=== PATIENT | female | born 1970 | race Caucasian/White ===

== ENCOUNTER → 2020-04-15 | Outpatient (CLI) | payer OTHER, SELFPAY ==
--- NOTE | 2020-04-15 13:26 | RAD_ITS ---
STUDY: X-RAY - RIGHT SHOULDER REASON FOR EXAM: Pain. TECHNIQUE: 4 view(s) of the shoulder. COMPARISON: None. FINDINGS: Normal glenohumeral articulation. There is acromioclavicular arthrosis. Normal acromion. Normal humeral head and visualized proximal humerus. The soft tissue structures are unremarkable. Normal visualized pulmonary apex. RAD/Shoulder min 2 Views IMPRESSION: Acromioclavicular arthrosis. Electronically Signed: Sunny Resendez MD at 14:09 EDT Tel , Service support ,
== END | disposition home or self-care (01) ==
LOC: HPRAD 13:26
PROVIDERS: PCP Family Medicine; Referring Provider Orthopaedic Surgery; Visit Provider Orthopaedic Surgery
DX: S46.911A Strain of unspecified muscle, fascia and tendon at shoulder and upper arm level, right arm, initial encounter (principal)
CPT/HCPCS: 73030

== ENCOUNTER → 2020-07-01 | Outpatient (CLI) | payer OTHER, SELFPAY ==
[2020-07-01 13:53] VITALS: BMI 30.7
--- NOTE | 2020-07-01 14:24 | VDUE_ITS ---
Reason For Study: swelling Right Proximal Right jugular vein is spontaneous, widely patent, phasic, with no intraluminal echogenicity noted. Right subclavian vein is spontaneous, widely patent, phasic, with no intraluminal echogenicity noted. Right Lower Arm Right radial vein is compressible. Right ulnar vein is compressible. Right Arm Right axillary vein is spontaneous, patent, phasic, competent, compressible and demonstrates augmentation. Right brachial vein is compressible. Right cephalic vein is compressible. Right basilic vein is compressible. Interpretation Summary No evidence for acute deep venous thrombosis[right] upper extremity with patent and compressible cephalic and basilic veins. Ordering Physician: Camila Blair Performed By: Phillip Rojo RVT ?
== END | disposition home or self-care (01) ==
PROVIDERS: PCP Family Medicine; Referring Provider Orthopaedic Surgery; Visit Provider Orthopaedic Surgery
DX: M79.89 Other specified soft tissue disorders (principal); S46.911A Strain of unspecified muscle, fascia and tendon at shoulder and upper arm level, right arm, initial encounter
CPT/HCPCS: 93971

== ENCOUNTER → 2020-10-22 12:29 | Outpatient (CLI) | payer OTHER, SELFPAY ==
[2020-07-01 13:53] VITALS: BMI 30.7
--- NOTE | 2020-10-22 12:30 | RAD_ITS ---
CLINICAL HISTORY: Female, 50 years old. Right shoulder pain. PROCEDURE: ARTHROGRAM - RIGHT SHOULDER CONSENT: The procedure as well as the benefits and possible complications were explained to the patient including infection and bleeding. Informed consent was obtained. FLUOROSCOPY TIME (if supplied): (42 seconds) minutes/seconds. Injection Information: 10 cc of dilute Dotarem Number of images obtained: 3 TECHNIQUE: (All elements of maximal sterile barrier technique followed, including US elements as applicable) The patient was in the supine position. The overlying skin was prepped and draped in usual sterile fashion. Following local anesthetic application and under direct fluoroscopic guidance, a 22-gauge spinal needle was placed into the shoulder joint. 2 cc of ISOVUE 300 was injected for confirmation. Following this, 10 cc of dilute Dotarem was injected. The patient tolerated the procedure well. RAD/Arthrogram Shoulder w/ MRI IMPRESSION: Successful right shoulder arthrogram for MRI examination. The patient tolerated the procedure well. Electronically Signed: Adrian Reveles, at 15:10 EST , Service support ,
--- NOTE | 2020-10-22 12:30 | MRI_ITS ---
STUDY: MRI RIGHT SHOULDER arthrogram REASON FOR EXAM: Female, 50 years old. RIGHT shoulder injury x 1 yr please compare with outside arthrogram. TECHNIQUE: Standardized fat and water weighted pulse sequences were obtained in all 3 orthogonal planes. COMPARISON: October 15, 2019 FINDINGS: Tendinosis of the supraspinatus with fraying and partial humeral surface distal tendon tear, series 5 images 05/22 and 06/22. Normal infraspinatus tendon. Normal subscapularis tendon. Normal teres minor tendon. Normal supraspinatus muscle. Normal infraspinatus muscle. Normal subscapularis muscle. Normal teres minor muscle. Normal glenohumeral articulation. Small cysts of the anterior and lateral humeral head. Normal biceps labral complex. Normal intracapsular long biceps tendon. Normal labrum. There is thickening of the middle glenohumeral ligament suggesting [place] complex. There is a partial tear of the inferior glenohumeral ligament (IGHL) at the humeral insertion, series 4 images 04/24 and 05/24. Normal rotator interval. There is mild osteoarthritis of the acromioclavicular articulation. There is a Type II morphology (curved) acromion, with a neutral orientation. There is no subacromial-subdeltoid bursal contrast. Normal visualized coracohumeral and coracoacromial ligaments. Normal quadrilateral space. Normal axillary space. Normal deltoid muscle. Normal trapezius muscle. 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 No full-thickness rotator cuff tear. Partial tear of the inferior glenohumeral ligament. Electronically Signed: Kevyn Rawls MD at 10:43 EST , Service support ,
== END ==
PROVIDERS: PCP Family Medicine; Referring Provider Orthopaedic Surgery; Visit Provider Orthopaedic Surgery
DX: S46.911A Strain of unspecified muscle, fascia and tendon at shoulder and upper arm level, right arm, initial encounter (principal)
CPT/HCPCS: 23350; 73222; 77002; Q9967; A9575